=== PATIENT | female | born 1945 ===

== ENCOUNTER 2018-08-26 13:00 | Inpatient (IN) | payer OTHER ==
[~2018-08-26] VITALS: Ht 157.5 cm; Wt 77.6 kg
[2018-09-04] MEDS ORDERED: OXYC1TAB9 PO (10:57)
[2018-09-04] MEDS ORDERED: BACTRIM DS TAB1 EACH PO (10:57)
== END 2018-09-04 11:19 | disposition home or self-care (01) | DRG 331 ==
LOC: SURG 09-02 07:00 → O/R 09-02 07:15 → SURH 09-02 07:15 → SURG 09-02 13:00 → SURH 09-02 13:36
PROVIDERS: Surgery
PROC: 0DTP0ZZ Resection of Rectum, Open Approach (ICD-10-PCS; 2018-09-02)
PROC: 0DUR0JZ Supplement Anal Sphincter with Synthetic Substitute, Open Approach (ICD-10-PCS; 2018-09-02)
PROC: 0DJD8ZZ Inspection of Lower Intestinal Tract, Via Natural or Artificial Opening Endoscopic (ICD-10-PCS; 2018-09-02)
PROC: 0DTN0ZZ Resection of Sigmoid Colon, Open Approach (ICD-10-PCS; principal; 2018-09-02 07:00)
DX: K62.3 Rectal prolapse (principal); R15.9 Full incontinence of feces; Z91.013 Allergy to seafood